=== PATIENT | female | born 1995 | race Hispanic/Latino ===

== ENCOUNTER 2017-12-21 04:59 | Emergency (ER) | payer BC, SELFPAY ==
[2017-12-21] MEDS ORDERED: Milk Of Magnesia 30 ML UDCUP ONE (05:13)
[2017-12-21] MEDS ORDERED: Ondansetron ODT 4 MG TAB ONE (05:13)
[2017-12-21] MEDS ORDERED: Lidocaine Viscous Sol 2% 15 ml UD Cup ONE (05:13)
[2017-12-21] MEDS ORDERED: Famotidine 20 MG TAB ONE (05:13)
[2017-12-21 05:36] LABS: #Eosinphils 0.1 thou/uL (0.0-0.7); #Lymphocytes 2.4 thou/uL (1.20-3.40); #Monocytes 0.9 thou/uL (0.11-0.59); #Neutrophils 9.2 thou/uL (1.40-6.50); %Basophils 0.4 % (0.0-1.0); %Eosinophils 0.6 % (0.0-10.0); %Lymphocytes 18.8 % (21.0-51.0); %Monocytes 7.1 % (0.0-10.0); %Neutrophils 73.1 % (42.0-75.0); Hemoglobin 14.6 g/dL (12.0-16.0); Mean Corpuscular HGB CONC 35.3 g/dL (32.0-36.0); Mean Corpuscular Hemoglobin 31.5 pg (27.0-31.0); Mean Corpuscular Volume 89.2 fl (81.0-99.0); Mean Platelet Volume 6.9 fL (7.4-10.4); Platelet Count 358 thou/uL (130-400); RBC Distribution Width 11.8 % (11.5-14.5); Red Blood Cell (RBC) Count 4.64 mill/uL (4.20-5.40); White Blood Cell (WBC) Count 12.6 thou/uL (4.8-10.8)
[2017-12-21 05:43] LABS: BHCG - Serum Negative (NEGATIVE); Pregs Control Background? CLEAR/WHITE (CLR/WHITE); Pregs Control Bar Appear? YES (CONTROL BAR)
[2017-12-21 05:53] LABS: ALT (SGPT) 65 U/L (8-55); AST (SGOT) 56 U/L (5-34); Albumin 4.4 g/dL (3.5-5.0); Alkaline Phosphatase 80 U/L (40-150); Anion Gap 12 mmol/L (10-20); BUN (Urea Nitrogen) 12 mg/dL (7.0-18.7); Bilirubin, Total 0.7 mg/dL (0.2-1.2); Calc. Creatinine Clearance 0 mL/min (70-130); Calcium 9.5 mg/dL (7.8-10.44); Carbon Dioxide 25 mmol/L (22-29); Chloride 106 mmol/L (98-107); Estimated GFR-MDRD Greater than 90; Globulin 3.3 g/dL (2.4-3.5); Glucose 111 mg/dL (70-105); Lipase 39 U/L (8-78); Potassium 4.1 mmol/L (3.5-5.1); Protein, Total 7.7 g/dL (6.0-8.3); Sodium 139 mmol/L (136-145)
--- NOTE | 2017-12-21 07:35 | ULT ---
SONOGRAM RIGHT UPPER QUADRANT: HISTORY: Right upper quadrant pain. FINDINGS: Multiple shadowing stones are present within the gallbladder lumen. Gallbladder wall thickness is up per limits of normal at 0.5 cm. The patient was not reportedly tender over the gallbladder fossa at the time of the exam. The common duct is 0.5 cm. Liver is unremarkable without focal mass or intrah epatic biliary dilatation. No free fluid. Cysts arise from the cortex of the right kidney. Small e chogenic foci are also present suggesting nonobstructing stones. IMPRESSION: 1. Cholelithiasis. No evidence of acute biliary obstruction. 2. Right renal cysts. Probable small nonobstructing right renal calculi. POS: [facility]
== END 2017-12-21 08:06 | disposition home or self-care (01) ==
LOC: ERS 04:59
DX: K21.9 Gastro-esophageal reflux disease without esophagitis (principal); K29.70 Gastritis, unspecified, without bleeding
CPT/HCPCS: 36415; 76705; 80053; 83690; 84703; 85025; Q0162

== ENCOUNTER 2019-12-01 06:23 | Inpatient (IN) | payer MEDICAID, OTHER, SELFPAY ==
[2019-12-01 07:11] LABS: Amnisure Test RUPTURE DETECTED (No Rupture)
[2019-12-01 07:12] LABS: Amnisure Internal Control QC ACCEPTABLE (ACCEPTABLE)
[2019-12-01] MEDS ORDERED: hydrALAZINE 20 MG/ML VIAL SLOW IVP PRN (07:13)
[2019-12-01] MEDS ORDERED: Butorphanol Tartrate 1 MG/ML VIAL SLOW IVP PRN (07:23)
[2019-12-01] MEDS ORDERED: Ondansetron PF 4 MG/2 ML Vial IVP PRN ×2 (07:23→12:55)
[2019-12-01] MEDS ORDERED: Methylergonovine 0.2 MG/ML VIAL IM PRN (07:23)
[2019-12-01] MEDS ORDERED: Carboprost 250 MCG/ML AMP IM PRN (07:23)
[2019-12-01] MEDS ORDERED: Acetaminophen 500 MG TAB PO PRN (07:23)
[2019-12-01] MEDS ORDERED: Ibuprofen 800 MG TAB PO PRN (07:23)
[2019-12-01] MEDS ORDERED: Lidocaine 1% (PF) 30 ML VIAL SC PRN (07:23)
[2019-12-01] MEDS ORDERED: NS / Oxytocin 40 units/1000ml 1,000 ML IV PRN (07:23)
[2019-12-01] MEDS ORDERED: Misoprostol 200 MCG TAB PR PRN (07:23)
[2019-12-01] MEDS ORDERED: Promethazine HCl 25 MG/ML VIAL IM PRN ×2 (07:23→12:55)
--- NOTE | 2019-12-01 07:23 | PDOC.EVN ---
Event Note - Event Note Event Note: OBGYN Faculty H&P Note PNC Patient Time: 729 CC: CTX and possible LOF 24 yo at 37 weeks 6 days here with possible CTX. BP on arrival was 150-160/ 90s, but denies related PIH SXS. Exam is 3-4cm dilated (favorable) Irreg CTX on TOCO Asa she is 37 weeks 6 days with likely gestational HTN (one severe pressure) I will admit and do pitcoin augmentation. Mag if severe criteria. D/W Dr Herrmann. Admit
[2019-12-01] MEDS ORDERED: NS w/ Oxytocin 10 units 500 ML IV SCH ×2 (07:30)
[2019-12-01] MEDS ORDERED: Calcium Gluc 4.6 MEQ/10 ML (100 MG/ML) SLOW IVP PRN (07:33)
[2019-12-01] MEDS ORDERED: Magnesium Sulfate 20 gm/500 ml 20 GM/500 ML BAG ONE (07:34)
--- NOTE | 2019-12-01 07:36 | PDOC.EVN ---
Event Note - Event Note Event Note: BP noted as 160 systolic...D/W Dr Herrmann..start Magnesium Sulfate
[2019-12-01] MEDS ORDERED: Magnesium Sulfate 20 GM/WATER 500 ML BAG IVPB SCH (07:45)
[2019-12-01 07:47] LABS: #Eosinphils 0.1 thou/uL (0.0-0.7); #Lymphocytes 2.3 thou/uL (1.20-3.40); #Neutrophils 12.5 thou/uL (1.40-6.50); %Basophils 0.1 % (0.0-1.0); %Eosinophils 0.7 % (0.0-10.0); %Lymphocytes 14.6 % (21.0-51.0); %Monocytes 6.4 % (0.0-10.0); %Neutrophils 78.1 % (42.0-75.0); Hemoglobin 12.6 g/dL (12.0-16.0); Mean Corpuscular HGB CONC 33.6 g/dL (32.0-36.0); Mean Corpuscular Hemoglobin 30.6 pg (27.0-31.0); Mean Corpuscular Volume 91.1 fL (78.0-98.0); Mean Platelet Volume 9.3 fL (7.4-10.4); Platelet Count 239 thou/uL (130-400); RBC Distribution Width 13.7 % (11.5-14.5); White Blood Cell (WBC) Count 15.9 thou/uL (4.8-10.8)
[2019-12-01] MEDS: Lactated Ringer's 1,000 ML IV SCH ×2 (07:49→15:20)
--- NOTE | 2019-12-01 07:50 | PDOC.FPROB ---
FMR OB H&P: HPI - History of Present Illness Chief Complaint: LOF Indentification: 24 yo @ 37.6 wks History of Present Illness: 24 yo pt comes in with concern that water broke at 5:30 this morning. Reports having ctx the last few days. Reports ctx 6 minutes apart. Pt reports FM. Denies any vaginal bleeding, discharge or itching. Pt denies any n/v/d/c. Denies any fever or chills. Denies any cough or SOB. Pt reports having mild headache earlier this morning with no vision changes. Denies any swelling. Pt denies any urinary sx's. 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: Denies any hx of STD's or abnormal pap smears - Surgical History Sx History: None - Social History Social History: Denies any smoking, drinking or illicit drug use - Family History Family History: Noncontributory FMR OB H&P: Medications - Current Home Medications: Medication Instructions Recorded Confirmed Type Pnv No.95/Ferrous Fum/Folic AC 1 each PO DAILY 12/01/19 12/01/19 History [ Formula Tablet] Docusate Calcium [Surfak] 240 mg PO BID cap 12/03/19 Rx Ferrous Sulfate [Feosol] 325 mg PO BID-WM tab 12/03/19 Rx Ibuprofen [Motrin] 800 mg PO Q8HR tab 12/03/19 Rx Allergies/Adverse Reactions: Allergies Allergy/AdvReac Type Severity Reaction Status Date / Time No Known Allergies Allergy Unverified 12/01/19 07:24 FMR OB H&P: ROS - Review of Systems General: denies: fever/chills, weight/appetite/sleep changes, fatigue Eyes: denies: vision changes, scotomas ENT: denies: nasal congestion Respiratory: denies: cough, congestion, shortness of breath Gastrointestinal: denies: abdominal pain, cramping, nausea, vomiting, diarrhea, constipation Genitourinary (Female): reports: contractions. denies: incontinence, dysuria, hematuria, vaginal discharge, vaginal bleeding Musculoskeletal: denies: swelling Neurologic: denies: numbness, weakness Integumentary: denies: itching, rash, lesions Breast: denies: lumps, bumps Hematologic/Lymphatic: denies: prolonged or excessive bleeding Psychological: denies: depression, anxiety FMR OB H&P: Vital Signs - Maternal Vital signs: Vital Signs - First Documented Temp Pulse Resp BP 98.6 F 98 18 164/96 H 12/01/19 06:56 12/01/19 06:56 12/01/19 06:56 12/01/19 06:56 - Heart Tones Baseline: 140 Variability: moderate Acceleration: present Category: category 1 [place] contractions every: 6 minutes FMR OB H&P: Physical Exam - Physical Exam General: NAD, awake, alert and oriented HEENT: normocephalic and atraumatic, MMM, grossly normal vision, grossly normal hearing Neck: supple, FROM Heart: RRR, normal S1/S2, no murmurs/rubs/gallops General: CTAB, no respiratory distress, good air movement, no rales/rhonchi, no wheezing, no retractions Abdomen: soft, gravid, bowel sound present Neurological: sensation to pain,touch and proprioception grossly normal Skin: no rash, good tugor, capillary refill <2 seconds Psychiatric: intact recent and remote memory, good judgement and insight FMR OB H&P: Results - Labs Lab results: Laboratory Results - last 24 hr 12/01/19 12/01/19 06:54 07:38 WBC 15.9 H RBC 4.10 L Hgb 12.6 Hct 37.4 MCV 91.1 MCH 30.6 MCHC 33.6 RDW 13.7 Plt Count 239 MPV 9.3 Neutrophils % 78.1 H Lymphocytes % 14.6 L Monocytes % 6.4 Eosinophils % 0.7 Basophils % 0.1 Neutrophils # 12.5 H Lymphocytes # 2.3 Monocytes # 1.0 H Eosinophils # 0.1 Basophils # 0.0 Amnio Swab Test RUPTURE DETECTED H FMR OB H&P: A/P - Problem List (1) Severe pre-eclampsia Status: Acute Code(s): O14.10 - SEVERE PRE-ECLAMPSIA, UNSPECIFIED TRIMESTER (2) Status: Acute Qualifiers: Weeks of gestation: 37 weeks Qualified Code(s): Z3A.37 - 37 weeks gestation of Disposition: 24 yo F @ 37.6 wks presents with PROM and elevated blood pressures -Cat 1 strip -GBS reported negative. Will check with lab. If pos will tx -Will augment labor with Pitocin -Anesthesia consulted if wants epidural. Unsure at this time. -SVE 7:00 3.5/50/-3 -do not have records. will try and obtain later today or may have to wait til monday to have faxed over. Pre-Eclampsia w/ Severe features -Pt has had multiple severe range BP above 160. -Pre-E labs pending -Will start magnesium. Discussion: Date/Time: 12/01/19 0748 This H&P was discussed with Dr. Aden who agrees with the above documentation and plan. FACULTY NOTE: Markie here: Agree with plan. Please see my separate entry note as event note,
[2019-12-01 08:08] LABS: ALT (SGPT) 14 U/L (8-55); AST (SGOT) 15 U/L (5-34); Albumin 3.4 g/dL (3.5-5.0); Alkaline Phosphatase 162 U/L (40-110); Anion Gap 14 mmol/L (10-20); BUN (Urea Nitrogen) 7 mg/dL (7.0-18.7); Bilirubin, Total 0.6 mg/dL (0.2-1.2); Calc. Creatinine Clearance 0 mL/min (70-130); Calcium 9.1 mg/dL (7.8-10.44); Carbon Dioxide 20 mmol/L (22-29); Chloride 107 mmol/L (98-107); Estimated GFR-MDRD Greater than 90; Globulin 3.3 g/dL (2.4-3.5); Glucose 84 mg/dL (70-105); Potassium 3.7 mmol/L (3.5-5.1); Protein, Total 6.7 g/dL (6.0-8.3); Sodium 137 mmol/L (136-145)
[2019-12-01 08:26] LABS: HBSAg Index 0.15 S/CO (0-0.99); Hep B Surf Ag Non-Reactive S/CO (NonReactive); Syphilis Antibody Nonreactive (Nonreactive); Syphilis Antibody Index 0.06 S/CO (<1.00 Non-Reactive)
[2019-12-01 08:56] LABS: Creatinine, Urine 91.88 mg/dL (47-110)
--- NOTE | 2019-12-01 10:21 | PDOC.LDPN ---
Labor & Delivery Progress Note - Subjective Subjective: comfortable - Objective Vital signs reviewed and normal: yes General: NAD, resting, breathing through contractions Uterine fundus: non tender SVE: 10:00 Dilation: 4 Effacement: 50% Station: -2 FHT: category 1, variability present [place] contractions every: 2-3 minutes - Assessment (1) Severe pre-eclampsia Code(s): O14.10 - SEVERE PRE-ECLAMPSIA, UNSPECIFIED TRIMESTER Current Visit: Yes Status: Acute (2) Current Visit: Yes Status: Acute Qualifiers: Weeks of gestation: 37 weeks Qualified Code(s): Z3A.37 - 37 weeks gestation of Plan: pitocin for augmentation -: 24 yo F @ 37.6 wks presents with PROM and elevated blood pressures -Cat 1 strip -GBS reported negative. Will check with lab. If pos will tx -Will augment labor with Pitocin -Anesthesia consulted if wants epidural. Unsure at this time. -SVE 7:00 3.5/50/-3 SROM. Amnisure (+) -SVE 10:00 4/50/-2 -do not have records. will try and obtain later today or may have to wait til monday to have faxed over. Pre-Eclampsia w/ Severe features -Pt has had multiple severe range BP above 160. -Pre-E labs normal. Pr/Cr ratio .18 -Given one dose hydralazine x1. On magnesium. -BP in normal range at this time.
[2019-12-01 10:37] VITALS: BMI 40.6
[2019-12-01] MEDS ORDERED: Fentanyl 4 mcg/Bup 0.1% Cadd 100 ML ONE (11:49)
[2019-12-01] MEDS ORDERED: Fentanyl 100 MCG/2 ML VIAL ONE (12:32)
[2019-12-01] MEDS ORDERED: Lactated Ringer's 500 ML IV PRN (12:55)
[2019-12-01] MEDS ORDERED: EPHEDRINE 25 MG/5 ML SYRINGE SLOW IVP PRN (12:55)
[2019-12-01] MEDS ORDERED: Acetaminophen 325 MG TAB PO PRN (12:55)
[2019-12-01] MEDS ORDERED: Naloxone HCl 0.4 mg/ml Vial IVP PRN ×2 (12:55)
[2019-12-01] MEDS ORDERED: diphenhydrAMINE 50 MG/ML VIAL IVP PRN (12:55)
[2019-12-01] MEDS ORDERED: Fentanyl 4 mcg/Bupivacaine 0.1% Cassette 100 ML EPIDURAL SCH (13:00)
[2019-12-01] MEDS ORDERED: Communication Order-Pharmacy FS SCH (13:00)
--- NOTE | 2019-12-01 13:27 | PDOC.LDPN ---
Labor & Delivery Progress Note - Subjective Subjective: comfortable - Objective Vital signs reviewed and normal: yes General: NAD, resting Uterine fundus: non tender SVE: 12:45 Dilation: 4 Effacement: 50% Station: -2 FHT: category 1, variability present [place] contractions every: 3 minutes IUPC placed: yes - Assessment (1) Severe pre-eclampsia Code(s): O14.10 - SEVERE PRE-ECLAMPSIA, UNSPECIFIED TRIMESTER Current Visit: Yes Status: Acute (2) Current Visit: Yes Status: Acute Qualifiers: Weeks of gestation: 37 weeks Qualified Code(s): Z3A.37 - 37 weeks gestation of Plan: pitocin for augmentation -: 24 yo F @ 37.6 wks presents with PROM and elevated blood pressures -Cat 1 strip -GBS reported negative on records from [facility] -Will augment labor with Pitocin -Epidural placed. -SVE 7:00 3.5/50/-3 SROM. Amnisure (+) -SVE 10:00 4/50/-2 -SVE 12:45 4/60/-2. IUPC placed. Pitocin rate of 12. Will continue to titrate. Pre-Eclampsia w/ Severe features -Pt has had multiple severe range BP above 160 upon admission. -Pre-E labs normal. Pr/Cr ratio .18 -Given one dose hydralazine x1. On magnesium. -BP in normal range at this time.
[2019-12-01] MEDS: Magnesium Sulfate 20 gm/500 ml 20 GM/500 ML BAG IVPB SCH (15:48)
[2019-12-01] MEDS ORDERED: diphenhydrAMINE 25 MG CAP PO PRN (17:22)
[2019-12-01] MEDS ORDERED: Lanolin Ointment 7 GM TUBE TOP PRN (17:22)
[2019-12-01] MEDS ORDERED: Benzocaine-Menthol 82.5 ML CAN TOP PRN (17:22)
[2019-12-01] MEDS ORDERED: Bisacodyl 10 MG SUPP PR PRN (17:22)
[2019-12-01] MEDS ORDERED: Milk Of Magnesia 30 ML UDCUP PO PRN (17:22)
[2019-12-01] MEDS ORDERED: Adacel (T-DAP) 0.5 ML SYRINGE IM ONE (17:22)
[2019-12-01] MEDS ORDERED: Preparation H Ointment 28 GM TUBE PR PRN (17:22)
--- NOTE | 2019-12-01 17:58 | PDOC.OPDEL ---
OB Operative/Delivery Note Delivery Dr/Surgeon: Dr. Franco Assist: Dr. Escudero, supervised by Dr. Gaspar Pre-Delivery Diagnosis: medically indicated induction, ruptured membrane Procedure/Post Delivery Dx: spontaneous vaginal delivery Weeks gestation: 37 (.6) Anesthesia: epidural - Findings A Sex: male - 1 min: 8 - 5 min: 9 - Additional Findings/Plan Placenta delivered: spontaneous Repaired Obstetrical Laceration: 2nd degree Estimated blood loss: 105ml Compilations/Other Findings: Delivering Physician: Dr. Franco, assisted by Dr. Escudero (continuity) Attending: Dr. Gaspar Procedure: Spontaneous Vaginal Delivery Anesthesia: epidural EBL: 105 ml Pre-op Diagnosis: 1. Term intrauterine 2. Rupture of Membranes 3. Pre-eclampsia Post-op Diagnosis: 1. Term intrauterine , delivered 2. same as above Indications: A 24y/o female presents with rupture of membranes and subsequent induction of labor Delivery Note: This is 24yo F @ 37.6wks who delivered a viable M at 1724. Following an antepartum course, significant for ROM and pre-eclampsia started on magnesium, a vigorous male was delivered over an intact perineum in the occipitoanterior position. Anterior Shoulder and then remainder of the body delivered. No nuchal cord. The head was held down and mouth and nares were bulb suctioned. Cord clamped after delayed cord clamping and cut and cord blood collected. Placenta delivered intact with a 3 vessel cord noted. Fundal massage was performed and the fundus was firm. The cervix and vagina were inspected and notable for a 2nd degree perineal laceration which was repaired with 2.0 chromic gut suture in the usual fashion with good approximation and hemostasis. went to nursery in good condition for routine care. Apgars were 8 /9 at 1 & 5 minutes, respectively. Patient tolerated delivery well and went to after routine recovery/care. Post delivery plan: routine recovery
--- NOTE | 2019-12-01 21:19 | PDOC.BPN ---
- Brief Progress Note Patient is a 24F >2 who delivered via @ 37.6wga on 11/30 @ 1724. 2nd degree lac repaired and hemostatic. Started on mag for pre-e with severe range BP S: Patient doing well, no complaints O: BP: 120s-130s/60s-80s, urine output 200-350ml/hr A: 24F >2 who delivered via @ 37.6wga, on mag for severe range BP prior to delivery -mag started @ 0750 on 11/30, will keep on mag for 24hrs -BP wnl and urine output adequate, reflexes wnl per nursing -patient asymptomatic -will continue to monitor BP, urine output, and reflexes throughout time on mag Simran Treviño MD, PGY-1
[2019-12-01] MEDS: Docusate Calcium (SURFAK) 240 MG CAP PO SCH (22:13)
[2019-12-01] MEDS: Ibuprofen 800 MG TAB PO SCH (22:13)
[2019-12-02] MEDS: Magnesium Sulfate 20 gm/500 ml 20 GM/500 ML BAG IVPB SCH (02:05)
--- NOTE | 2019-12-02 04:30 | PDOC.BPN ---
- Brief Progress Note Patient is a 24F >2 who delivered via @ 37.6wga on 11/30 @ 1724. 2nd degree lac repaired and hemostatic. Started on mag for pre-e with severe range BP S: Patient doing well, resting comfortably in bed. O: BP: 114-134/64-92 urine output 100ml/hr A: 24F >2 who delivered via @ 37.6wga, on mag for severe range BP prior to delivery -mag started @ 0750 on 11/30, will keep on mag for 24hrs -BP wnl and urine output adequate, reflexes wnl -will continue to monitor BP, urine output, and reflexes throughout time on mag Simran Treviño MD, PGY-1
[2019-12-02 05:32] LABS: Hemoglobin 12.5 g/dL (12.0-16.0); Mean Corpuscular HGB CONC 32.3 g/dL (32.0-36.0); Mean Corpuscular Hemoglobin 29.3 pg (27.0-31.0); Mean Corpuscular Volume 90.7 fL (78.0-98.0); Mean Platelet Volume 9.2 fL (7.4-10.4); Platelet Count 235 thou/uL (130-400); Red Blood Cell (RBC) Count 4.26 mill/uL (4.20-5.40); White Blood Cell (WBC) Count 18.2 thou/uL (4.8-10.8)
[2019-12-02] MEDS: Ibuprofen 800 MG TAB PO SCH ×3 (06:13→22:00)
--- NOTE | 2019-12-02 06:47 | PDOC.OBPPN ---
FMR OB PN: Subj - Interval History Hospital Day: 2 Day: PP day # 1 Pt is a 24 yo G2 now P2002 who delivered at 37.6 wks via after being admitted for severe range blood pressures requiring magnesium. She denies vision changes, PASCAL, chest pain, worsening sob, LE swelling, abdominal pain. She has mild spotting. Pt did have a 2nd degree laceration repaired after delivery. Chief Complaint: , pre-E w/ severe range pressures Indentification: Delivere at 37.6 wks FMR OB PN: Obj - Maternal Vital signs: BP: 119/70, 128/68, 131/78 - Urine output I&O: 11/30/19 12/01/19 12/02/19 06:59 06:59 06:59 Output Total 169 Balance -169 FMR OB PN: Exam - Physical Exam General: NAD, awake, alert and oriented HEENT: PERRLA, EOMI Neck: FROM, no JVD Heart: RRR, normal S1/S2 General: CTAB, no respiratory distress, good air movement, no wheezing Abdomen: soft, bowel sound present Deviation from normal: mild suprapubic tenderness Musculoskeletal: pulses present, FROM in all four extremities Neurological: cranial nerves II through XII intact, sensation to pain,touch and proprioception grossly normal, DTR +2 Skin: no rash, capillary refill <2 seconds : no edema Lymphatic: no purpura, no petechia Psychiatric: intact recent and remote memory, good judgement and insight FMR OB PN: Data - Labs Lab results: Laboratory Results - last 24 hr 12/01/19 12/01/19 12/01/19 06:54 07:38 07:38 WBC 15.9 H RBC 4.10 L Hgb 12.6 Hct 37.4 MCV 91.1 MCH 30.6 MCHC 33.6 RDW 13.7 Plt Count 239 MPV 9.3 Neutrophils % 78.1 H Lymphocytes % 14.6 L Monocytes % 6.4 Eosinophils % 0.7 Basophils % 0.1 Neutrophils # 12.5 H Lymphocytes # 2.3 Monocytes # 1.0 H Eosinophils # 0.1 Basophils # 0.0 Sodium 137 Potassium 3.7 Chloride 107 Carbon Dioxide 20 L Anion Gap 14 BUN 7 Creatinine 0.59 L Estimated GFR (MDRD) Greater than 90 Glucose 84 Calcium 9.1 Total Bilirubin 0.6 AST 15 ALT 14 Alkaline Phosphatase 162 H Serum Total Protein 6.7 Albumin 3.4 L Globulin 3.3 Albumin/Globulin Ratio 1.0 L Urine Protein U Random Total Protein Urine Creatinine Amnio Swab Test RUPTURE DETECTED H Syphilis IgG/IgM Ab Hep Bs Antigen Blood Type Antibody Screen 12/01/19 12/01/19 12/01/19 07:38 07:38 07:38 WBC RBC Hgb Hct MCV MCH MCHC RDW Plt Count MPV Neutrophils % Lymphocytes % Monocytes % Eosinophils % Basophils % Neutrophils # Lymphocytes # Monocytes # Eosinophils # Basophils # Sodium Potassium Chloride Carbon Dioxide Anion Gap BUN Creatinine Estimated GFR (MDRD) Glucose Calcium Total Bilirubin AST ALT Alkaline Phosphatase Serum Total Protein Albumin Globulin Albumin/Globulin Ratio Urine Protein U Random Total Protein Urine Creatinine Amnio Swab Test Syphilis IgG/IgM Ab Nonreactive Hep Bs Antigen Non-Reactive Blood Type A POSITIVE Antibody Screen NEGATIVE 12/01/19 12/01/19 12/01/19 08:01 08:01 08:17 WBC RBC Hgb Hct MCV MCH MCHC RDW Plt Count MPV Neutrophils % Lymphocytes % Monocytes % Eosinophils % Basophils % Neutrophils # Lymphocytes # Monocytes # Eosinophils # Basophils # Sodium Potassium Chloride Carbon Dioxide Anion Gap BUN Creatinine Estimated GFR (MDRD) Glucose Calcium Total Bilirubin AST ALT Alkaline Phosphatase Serum Total Protein Albumin Globulin Albumin/Globulin Ratio Urine Protein 10 U Random Total Protein 17 H Urine Creatinine 91.88 Amnio Swab Test Syphilis IgG/IgM Ab Hep Bs Antigen Blood Type A POSITIVE Antibody Screen 12/02/19 05:23 WBC 18.2 H RBC 4.26 Hgb 12.5 Hct 38.7 MCV 90.7 MCH 29.3 MCHC 32.3 RDW 14.0 Plt Count 235 MPV 9.2 Neutrophils % Lymphocytes % Monocytes % Eosinophils % Basophils % Neutrophils # Lymphocytes # Monocytes # Eosinophils # Basophils # Sodium Potassium Chloride Carbon Dioxide Anion Gap BUN Creatinine Estimated GFR (MDRD) Glucose Calcium Total Bilirubin AST ALT Alkaline Phosphatase Serum Total Protein Albumin Globulin Albumin/Globulin Ratio Urine Protein U Random Total Protein Urine Creatinine Amnio Swab Test Syphilis IgG/IgM Ab Hep Bs Antigen Blood Type Antibody Screen FMR OB PN: A/P - Problem List (1) Current Visit: Yes Status: Acute Qualifiers: Weeks of gestation: 37 weeks Qualified Code(s): Z3A.37 - 37 weeks gestation of (2) Severe pre-eclampsia Current Visit: Yes Status: Acute Code(s): O14.10 - SEVERE PRE-ECLAMPSIA, UNSPECIFIED TRIMESTER Disposition: Pt is a 24 yo G2 now P2002 who delivered at 37.6 wks via after being admitted for severe range blood pressures requiring magnesium: # Term Delivery - continue post- care - tylenol, ibuprofen for pain control - continue PNV # Pre-E w/ severe range pressures - pt currently on mg for 12 hours w/ good BP control, diuresing well. Discussed w/ Laborist team d/c magnesium and continuing to monitor blood pressures for the next 24 hours. She denies pre-e symptoms. - continue prn bp medications Dispo: monitor bp's for 24 hours Plan discussed with Dr. Wakefield/Hubert 12/02/19 Discussion: Date/Time: 12/02/19 0647 This H&P was discussed with [] and [] who agree with the above documentation and plan.
[2019-12-02] MEDS: Lactated Ringer's 1,000 ML IV SCH ×3 (08:19→16:37)
[2019-12-02] MEDS: Docusate Calcium (SURFAK) 240 MG CAP PO SCH ×2 (10:39→21:08)
[2019-12-02] MEDS: Ferrous Sulfate 325 MG TAB PO SCH ×2 (10:39→14:25)
[2019-12-02] MEDS: Prenatal Vitamin 1 TAB PO SCH (10:39)
[2019-12-03] MEDS: Ibuprofen 800 MG TAB PO SCH (05:49)
[2019-12-03] MEDS: Lactated Ringer's 1,000 ML IV SCH ×2 (05:49→07:39)
--- NOTE | 2019-12-03 06:40 | PDOC.OBPPN ---
FMR OB PN: Subj - Interval History Hospital Day: 2 Day: Post- day 2 Pt is a 24 yo G2 now P2002 who delivered at 37.6 wks via on 11/30. She had a 2nd degree perineal lac s/p repair. She was started on magnesium due to pre- e w/ severe range pressures. D/C magnesium yesterday. Vitals remain wnl. She denies vision changes, PASCAL, chest pain, sob, abdominal pain, LE swelling. Tolerating a diet, passing flatus. Chief Complaint: , Pre-E w/ severe range pressures Indentification: G2 now P2002 FMR OB PN: Obj - Maternal Vital signs: BP: 124/72 HR: 76 RR: 20 Tmax: 98.3 Wt: 97.5 kg - Urine output I&O: 12/01/19 12/02/19 12/03/19 06:59 06:59 06:59 Output Total 169 Balance -169 FMR OB PN: Exam - Physical Exam General: NAD, awake, alert and oriented HEENT: PERRLA, EOMI Heart: RRR, normal S1/S2 General: CTAB, no respiratory distress, good air movement Abdomen: soft, non-tender Musculoskeletal: pulses present, FROM in all four extremities Neurological: cranial nerves II through XII intact, sensation to pain,touch and proprioception grossly normal Skin: no rash, capillary refill <2 seconds Lymphatic: no purpura, no petechia Psychiatric: intact recent and remote memory, good judgement and insight FMR OB PN: A/P - Problem List (1) Status: Acute Qualifiers: Weeks of gestation: 37 weeks Qualified Code(s): Z3A.37 - 37 weeks gestation of (2) Severe pre-eclampsia Status: Acute Code(s): O14.10 - SEVERE PRE-ECLAMPSIA, UNSPECIFIED TRIMESTER Disposition: Pt is a 24 yo G2 now P2002 who delivered at 37.6 wks via after being admitted for severe range blood pressures requiring magnesium: # Term Delivery - continue post- care - tylenol, ibuprofen for pain control - continue PNV # Pre-E w/ severe range pressures - well controlled w/o mg, medication Dispo: BP's well since off mag, discuss d/c today Discussion: Date/Time: 12/03/19 0637 This H&P was discussed with [] and [] who agree with the above documentation and plan. Addendum - Attending - Attending Attestation Date/Time: 12/03/19 1237 I personally evaluated the patient and discussed the management with Dr. Dhillon. I agree with the History, Examination, Assessment and Plan documented above.
[2019-12-03] MEDS: Ferrous Sulfate 325 MG TAB PO SCH (07:39)
[2019-12-03] MEDS: Docusate Calcium (SURFAK) 240 MG CAP PO SCH (09:23)
[2019-12-03] MEDS: Prenatal Vitamin 1 TAB PO SCH (09:23)
[2019-12-03 11:32] VITALS: BP 140/86
[2019-12-03 11:59] VITALS: TEMP 98.9
== END 2019-12-03 12:20 | disposition home or self-care (01) | DRG 807 ==
LOC: L&D/OP 06:23 → L&D 07:23 → 3SW 12-02 10:58
PROVIDERS: ADMIT Obstetrics & Gynecology; ATTEND Obstetrics & Gynecology
PROC: 10E0XZZ Delivery of Products of Conception, External Approach (ICD-10-PCS; principal; 2019-12-01)
PROC: 10H07YZ Insertion of Other Device into Products of Conception, Via Natural or Artificial Opening (ICD-10-PCS; 2019-12-01)
PROC: 0KQM0ZZ Repair Perineum Muscle, Open Approach (ICD-10-PCS; 2019-12-01)
PROC: 3E033VJ Introduction of Other Hormone into Peripheral Vein, Percutaneous Approach (ICD-10-PCS; 2019-12-01)
DX: O14.14 Severe pre-eclampsia complicating childbirth (principal); Z37.0 Single live birth; Z3A.37 37 weeks gestation of pregnancy; O13.4 Gestational [pregnancy-induced] hypertension without significant proteinuria, complicating childbirth; O42.02 Full-term premature rupture of membranes, onset of labor within 24 hours of rupture; O70.1 Second degree perineal laceration during delivery
CPT/HCPCS: 36415; 51702; 80053; 81003; 82570; 84112; 84156; 85025; 85027; 86780; 86850; 86900; 86901; 87340; 99285; J0360; J2590; J3010; J3475

== ENCOUNTER 2021-02-12 20:16 | Emergency (ER) | payer OTHER ==
[2021-02-12] MEDS ORDERED: Ibuprofen 800 MG TAB ONE (20:56)
[2021-02-12] MEDS ORDERED: Ondansetron ODT 4 MG TAB ONE (20:56)
== END 2021-02-12 21:25 | disposition home or self-care (01) ==
LOC: ERS 20:16
DX: U07.1 COVID-19 (principal); I10 Essential (primary) hypertension
CPT/HCPCS: 71045; 93005; Q0162